=== PATIENT | female | born 1970 | race Caucasian/White ===

== ENCOUNTER 2019-08-17 11:05 | Emergency (ER) | payer BC ==
[~2019-08-17] VITALS: Ht 154.9 cm; Wt 142.9 kg
--- NOTE | 2019-08-17 11:13 | NUR ---
PT AMB TO ER BED 12
[2019-08-17 11:15] VITALS: BP 140/78
--- NOTE | 2019-08-17 11:15 | NUR ---
48 Y/O F C/C LOWER ABDOMINAL PAIN, 8/10 PRESSURE SENSATION, RADIATING FROM BELLY TO RLQ X 3 DAYS. PER PT SX HYSTERECTOMY 2015, HAS HAD PAIN ON/OFF SINCE SX. DENIES DYSURIA; NO IRREGULAR BM. ALLERGIES TO COMPOZINE. HX DM,ASTHMA,ENDOMETROSIS. RX CINGULAR/ALBUTEROL, ANIVAL. NO NVD. SIDE RAIL X1.
--- NOTE | 2019-08-17 11:20 | NUR ---
ERMD AT BEDSIDE
--- NOTE | 2019-08-17 11:36 | NUR ---
PT TAKEN TO CT VIA WHEELCHAIR
--- NOTE | 2019-08-17 11:46 | NUR ---
Patient returned from CT scan.
[2019-08-17 12:07] LABS: BASOPHILS % (AUTO) 0.5 % (0.0-2.0); EOSINOPHILS # (AUTO) 0.1 K/uL (0-0.4); EOSINOPHILS % (AUTO) 1.1 % (0.0-4.0); HEMATOCRIT 39.9 % (36-48); HEMOGLOBIN 12.7 g/dL (12.0-16.0); LYMPHOCYTES # (AUTO) 2.2 K/uL (2.5-16.5); LYMPHOCYTES % (AUTO) 27.8 % (20.5-51.1); MEAN CORPUSCULAR HEMOGLOBIN 26 pg (27-31); MEAN CORPUSCULAR HGB CONC 32 g/dL (33-37); MEAN CORPUSCULAR VOLUME 82.3 fL (80-94); MONOCYTES # (AUTO) 0.4 K/uL (0.8-1.0); MONOCYTES % (AUTO) 4.7 % (1.7-9.3); NEUTROPHILS # (AUTO) 5.3 K/uL (1.8-7.7); NEUTROPHILS % (AUTO) 65.9 % (42.2-75.2); PLATELET COUNT (AUTO) 241 K/uL (140-450); RED BLOOD CELL COUNT(AUTO) 4.85 MIL/uL (4.20-5.40); RED CELL DISTRIBUTION WIDTH 16.8 % (11.6-13.7)
[2019-08-17 12:25] LABS: APPEARANCE,URINE CLEAR (CLEAR); BILIRUBIN,URINE NEGATIVE (NEGATIVE); BLOOD, URINE NEGATIVE (NEGATIVE); COLOR,URINE YELLOW (YELLOW); LEUKOCYTE ESTERASE ,URINE 1+ (NEGATIVE); NITRITE, URINE NEGATIVE (NEGATIVE); UGLUCOSE NEGATIVE (NEGATIVE)
[2019-08-17 12:33] LABS: ANION GAP 9.5 (8-16); CARBON DIOXIDE 27.8 mmol/L (21-32); CREATININE 0.8 mg/dL (0.6-1.3); POTASSIUM 4.3 mmol/L (3.5-5.1)
[2019-08-17 12:33] LABS: RBC,URINE NONE SEEN /HPF (0-5); WBC,URINE 0-5 /HPF (0-5)
[2019-08-17 12:40] LABS: ALBUMIN 3.3 g/dL (3.4-5.0); TOTAL BILIRUBIN 0.4 mg/dL (0.0-1.0)
[2019-08-17 13:01] VITALS: BP 140/78
--- NOTE | 2019-08-17 13:02 | NUR ---
Patient discharged with v/s stable. Written and verbal after care instructions given and explained abdominal pain. Patient alert, oriented and verbalized understanding of instructions. Ambulatory with steady gait. All questions addressed prior to discharge. ID band removed. Patient advised to follow up with PMD. Rx of naprosyn given. Patient educated on indication of medication including possible reaction and side effects. Opportunity to ask questions provided and answered.
== END 2019-08-17 13:02 | disposition home or self-care (01) ==
LOC: MED 11:05
DX: R10.9 Unspecified abdominal pain (principal); R63.0 Anorexia; J45.909 Unspecified asthma, uncomplicated; F03.90 Unspecified dementia, unspecified severity, without behavioral disturbance, psychotic disturbance, mood disturbance, and anxiety; Z90.49 Acquired absence of other specified parts of digestive tract; Z90.710 Acquired absence of both cervix and uterus
CPT/HCPCS: 36415; 80053; 81001; 81025; 83690; 85025; 87086; 99284